=== PATIENT | male | born 1995 | race Caucasian/White ===

== ENCOUNTER 2017-05-11 19:53 | Emergency (ER) | payer OTHER ==
--- NOTE | 2017-05-11 19:59 | ER Report ---
History and Physical Time Seen By MD: 19:59 HPI/ROS CHIEF COMPLAINT: Syncope HISTORY OF PRESENT ILLNESS: This is a 21-year-old male who presents to the emergency department with his parents for a syncopal episode. Patient states that he was sitting at his desk today about 1 hour prior to arrival had a " panic attack" and then passed out. Patient states that when he passed out he hit the corner of his desk and then fell to the ground where his roommates ended up catching him. Patient states he did "come to" quickly after the event. Patient does have a small abrasion above the left eye, a very mild headache, denies C-spine tenderness. Patient's parents were concerned that he had a seizure as as his roommate described to them on the phone he was shaking. After talking to patient it sounds like maybe some myoclonic jerking. Patient is alert and oriented 4. Denies C-spine tenderness. When I asked patient about what precipitates these panic attacks he did say that marijuana has precipitated these in the recent months. He did state that he did not smoke marijuana today but did about 3 days ago. After further probing he states that he did do some cocaine yesterday. Patient denies coughs, colds, aches, fevers, chills, nausea or vomiting. REVIEW OF SYSTEMS: Constitutional: No fever, no chills. Eyes: No discharge. ENT: No sore throat. Cardiovascular: No chest pain, no palpitations. Respiratory: No cough, no shortness of breath. Gastrointestinal: No abdominal pain, no vomiting. Genitourinary: No hematuria. Musculoskeletal: No back pain. Skin: As above. Neurological: As above. Allergies: Coded Allergies: No Known Drug Allergies (Unverified , 05/11/17) Home Meds Reported Medications Amphet Asp/Amphet/D-Amphet (ADDERALL 15 MG TABLET) 15 Mg Tablet, 15 MG PO 05/11/17 Past Medical/Surgical History Patient has a past medical and surgical history of ADD, illicit drug use, no surgery. Reviewed Nurses Notes: Yes Constitutional Vital Sign - Last 24 Hours 05/11/17 05/11/17 05/11/17 05/11/17 20:00 20:05 20:08 20:13 Temp 98.4 Pulse 100 90 Resp 20 13 39 B/P (MAP) 144/96 (112) 144/96 Pulse Ox 100 100 97 O2 Delivery Room Air 05/11/17 05/11/17 20:43 21:13 Pulse 89 83 Resp 12 11 Physical Exam General Appearance: The patient is alert, has no immediate need for airway protection and no signs of toxicity, appears anxious. Eyes: Pupils equal and round no pallor or injection. EOMs intact. ENT, Mouth: Mucous membranes are moist. Respiratory: There are no retractions, lungs are clear to auscultation. Cardiovascular: Regular rate and rhythm, very faint systolic murmur, no clicks or rubs. Gastrointestinal: Abdomen is soft and non tender, no masses, bowel sounds normal. Neurological: Alert and oriented 4. Moving all cavities. Following all commands. No focal neuro deficits. Cranial nerves II through XII intact and equal. Skin: Warm and dry, no rashes. Small abrasion to the left lateral upper eyelid. Musculoskeletal: Neck is supple non tender. Extremities are nontender, nonswollen and have full range of motion. [ ] DIFFERENTIAL DIAGNOSIS: After history and physical exam differential diagnosis was considered for syncope including but not limited to vasovagal syncope, arrhythmia, dehydration, blood loss, seizure and drugs. Medical Decision Making Data Points Result Diagram: 05/11/17205405/11/172054 Laboratory Hematology Test 05/11/17 20:33 05/11/17 20:55 Urine Color Straw Urine Clarity Clear Urine pH 7.0 pH (4.8-9.5) Urine Specific [place] 1.010 Urine Protein Negative mg/dL (NEGATIVE) Urine Glucose (UA) Negative mg/dL (NEGATIVE) Urine Ketones Negative mg/dL (NEGATIVE) Urine Blood Negative (NEGATIVE) Urine Nitrite Negative (NEGATIVE) Urine Bilirubin Negative (NEGATIVE) Urine Urobilinogen Negative mg/dL (0.2-1.9) Urine Leukocyte Esterase Negative (NEGATIVE) Urine RBC 2 /HPF (0-2/HPF) Urine WBC 3 /HPF (0-5/HPF) Urine Squamous Epithelial Cells None /LPF (</=FEW) Urine Bacteria Negative /HPF (NONE-FEW) Urine Mucus None /HPF (NONE-FEW) Urine Opiates Screen Negative Urine Barbiturates Screen Negative Ur Tricyclic Antidepressants Screen Negative Urine Phencyclidine Screen Negative Urine Amphetamines Screen Positive Urine Benzodiazepines Screen Negative Urine Cocaine Screen Positive Urine Cannabinoids Screen Positive Red Blood Count 5.30 M/uL (4.00-5.60) Mean Corpuscular Volume 93.8 fL (80.0-96.0) Mean Corpuscular Hemoglobin 32.5 pg (26.0-33.0) Mean Corpuscular Hemoglobin Concent 34.6 g/dL (32.0-36.0) Red Cell Distribution Width 14.3 % (11.5-14.5) Mean Platelet Volume 7.2 fL (7.2-11.1) Neutrophils (%) (Auto) 87.8 % (39.4-72.5) Lymphocytes (%) (Auto) 4.4 % (17.6-49.6) Monocytes (%) (Auto) 5.9 % (4.1-12.4) Eosinophils (%) (Auto) 0.8 % (0.4-6.7) Basophils (%) (Auto) 1.1 % (0.3-1.4) Nucleated RBC Relative Count (auto) 0.0 /100WBC Neutrophils # (Auto) 11.9 K/uL (2.0-7.4) Lymphocytes # (Auto) 0.6 K/uL (1.3-3.6) Monocytes # (Auto) 0.8 K/uL (0.3-1.0) Eosinophils # (Auto) 0.1 K/uL (0.0-0.5) Basophils # (Auto) 0.2 K/uL (0.0-0.1) Nucleated RBC Absolute Count (auto) 0.00 K/uL Peripheral Blood Smear Yes Y/N Sodium Level 133 mmol/L (137-145) Potassium Level 3.6 mmol/L (3.5-5.0) Chloride Level 100 mmol/L (98-107) Carbon Dioxide Level 22 mmol/L (22-30) Blood Urea Nitrogen 13 mg/dl (9-21) Creatinine 1.00 mg/dl (0.66-1.25) Glomerular Filtration Rate Calc > 60.0 Random Glucose 93 mg/dl (75-110) Calcium Level 8.6 mg/dl (8.4-10.2) Total Bilirubin 0.9 mg/dl (0.2-1.3) Aspartate Amino Transf (AST/SGOT) 45 U/L (0-35) Alanine Aminotransferase (ALT/SGPT) 84 U/L (0-56) Alkaline Phosphatase 73 U/L (0-126) Total Protein 7.1 gm/dl (6.3-8.2) Albumin 3.9 g/dl (3.5-5.0) Chemistry Test 05/11/17 20:33 05/11/17 20:55 Urine Color Straw Urine Clarity Clear Urine pH 7.0 pH (4.8-9.5) Urine Specific [place] 1.010 Urine Protein Negative mg/dL (NEGATIVE) Urine Glucose (UA) Negative mg/dL (NEGATIVE) Urine Ketones Negative mg/dL (NEGATIVE) Urine Blood Negative (NEGATIVE) Urine Nitrite Negative (NEGATIVE) Urine Bilirubin Negative (NEGATIVE) Urine Urobilinogen Negative mg/dL (0.2-1.9) Urine Leukocyte Esterase Negative (NEGATIVE) Urine RBC 2 /HPF (0-2/HPF) Urine WBC 3 /HPF (0-5/HPF) Urine Squamous Epithelial Cells None /LPF (</=FEW) Urine Bacteria Negative /HPF (NONE-FEW) Urine Mucus None /HPF (NONE-FEW) Urine Opiates Screen Negative Urine Barbiturates Screen Negative Ur Tricyclic Antidepressants Screen Negative Urine Phencyclidine Screen Negative Urine Amphetamines Screen Positive Urine Benzodiazepines Screen Negative Urine Cocaine Screen Positive Urine Cannabinoids Screen Positive White Blood Count 13.6 k/uL (4.5-11.0) Red Blood Count 5.30 M/uL (4.00-5.60) Hemoglobin 17.2 g/dL (14.0-18.0) Hematocrit 49.7 % (42.0-52.0) Mean Corpuscular Volume 93.8 fL (80.0-96.0) Mean Corpuscular Hemoglobin 32.5 pg (26.0-33.0) Mean Corpuscular Hemoglobin Concent 34.6 g/dL (32.0-36.0) Red Cell Distribution Width 14.3 % (11.5-14.5) Platelet Count 212 K/uL (150-450) Mean Platelet Volume 7.2 fL (7.2-11.1) Neutrophils (%) (Auto) 87.8 % (39.4-72.5) Lymphocytes (%) (Auto) 4.4 % (17.6-49.6) Monocytes (%) (Auto) 5.9 % (4.1-12.4) Eosinophils (%) (Auto) 0.8 % (0.4-6.7) Basophils (%) (Auto) 1.1 % (0.3-1.4) Nucleated RBC Relative Count (auto) 0.0 /100WBC Neutrophils # (Auto) 11.9 K/uL (2.0-7.4) Lymphocytes # (Auto) 0.6 K/uL (1.3-3.6) Monocytes # (Auto) 0.8 K/uL (0.3-1.0) Eosinophils # (Auto) 0.1 K/uL (0.0-0.5) Basophils # (Auto) 0.2 K/uL (0.0-0.1) Nucleated RBC Absolute Count (auto) 0.00 K/uL Peripheral Blood Smear Yes Y/N Glomerular Filtration Rate Calc > 60.0 Calcium Level 8.6 mg/dl (8.4-10.2) Total Bilirubin 0.9 mg/dl (0.2-1.3) Aspartate Amino Transf (AST/SGOT) 45 U/L (0-35) Alanine Aminotransferase (ALT/SGPT) 84 U/L (0-56) Alkaline Phosphatase 73 U/L (0-126) Total Protein 7.1 gm/dl (6.3-8.2) Albumin 3.9 g/dl (3.5-5.0) Toxicology Test 05/11/17 20:33 Urine Opiates Screen Negative Urine Barbiturates Screen Negative Ur Tricyclic Antidepressants Screen Negative Urine Phencyclidine Screen Negative Urine Amphetamines Screen Positive Urine Benzodiazepines Screen Negative Urine Cocaine Screen Positive Urine Cannabinoids Screen Positive Urinalysis Test 05/11/17 20:33 Urine Color Straw Urine Clarity Clear Urine pH 7.0 pH (4.8-9.5) Urine Specific [place] 1.010 Urine Protein Negative mg/dL (NEGATIVE) Urine Glucose (UA) Negative mg/dL (NEGATIVE) Urine Ketones Negative mg/dL (NEGATIVE) Urine Blood Negative (NEGATIVE) Urine Nitrite Negative (NEGATIVE) Urine Bilirubin Negative (NEGATIVE) Urine Urobilinogen Negative mg/dL (0.2-1.9) Urine Leukocyte Esterase Negative (NEGATIVE) Urine RBC 2 /HPF (0-2/HPF) Urine WBC 3 /HPF (0-5/HPF) Urine Squamous Epithelial Cells None /LPF (</=FEW) Urine Bacteria Negative /HPF (NONE-FEW) Urine Mucus None /HPF (NONE-FEW) EKG/Imaging EKG Interpretation 12 lead EKG: EKG time 2027. Rhythm: Sinus rhythm, ventricular rate 84 bpm. Viola: Right QRS: normal ST segments: No ST depression or elevation. No previous EKG for comparison. ED Course/Re-evaluation Clinical Indication for ER IV: Hydration, IV Access ED Course The patient was admitted to room. A history physical were obtained. Differential diagnoses were considered. An IV was started. A 1 L normal saline bolus was given. Patient's tetanus was updated A CBC, CMP, UA and UDS were obtained. CBC and CMP unremarkable. EKG normal sinus rhythm. UA unremarkable. Urine drug screen showing marijuana, cocaine and amphetamines. Amphetamines from the patient's Adderall. Patient did admit to me that he was smoking marijuana and he tried some cocaine yesterday. I did review these results with the patient and his family. I did the patient this was likely a syncopal episode related to his anxiety. I also talked to the patient about his polysubstance abuse and that these anxiety episodes would likely continue unless he stops the marijuana and cocaine use. I did tell the patient that he needs to follow-up in one to two days with [facility] and he needs to talk to a therapist or a mental health professional to help with his anxiety and use of illicit substances. The patient had no other questions or concerns at this time neither did the parents. The patient was discharged home. Patient states he is feeling better at the time of discharge. Decision to Disposition Date: May 11, 2017 Decision to Disposition Time: 22:00 Depart Departure Latest Vital Signs Vital Signs Date Time Temp Pulse Resp B/P (MAP) Pulse Ox O2 Delivery O2 Flow Rate FiO2 05/11/17 21:13 83 11 05/11/17 20:13 97 05/11/17 20:05 98.4 144/96 Room Air Impression: Primary Impression: Syncope Additional Impressions: Polysubstance abuse Anxiety Condition: Improved Disposition: HOME OR SELF-CARE Referrals: [facility] Patient Instructions: Anxiety (ED), Polysubstance Abuse (ED), Syncope (ED) Additional Instructions: Drink plenty of fluids. Get plenty of rest. You need to stop using Marijuana and Cocaine. You need to use your Adderall as directed only. You need to follow up with [facility] either or Tuesday. Follow up with your primary care provider for future needs. May return to the ED for any other needs or worsening symptoms. MD Consult Note: Dr. George Problem Qualifiers Primary Impression: Syncope Syncope type: unspecified Qualified Codes: R55 - Syncope and collapse AMADOU JOHNSON [employer] May 11, 2017 19:59
[2017-05-11 20:05] VITALS: BP 144/96
[2017-05-11] MEDS ORDERED: AMPH15TA3 PO (20:05)
[2017-05-11] MEDS ORDERED: NS(*) 0.9% 1000 ML BAG 1,000 ML IV ONE (20:21)
--- NOTE | 2017-05-11 20:52 | EKG ---
FACILITY: [facility] [place] PATIENT NAME: CHRIS RAMOS : [id number] MR: [id number] V: [id number] EXAM DATE: ORDERING PHYSICIAN: AMADOU JOHNSON TECHNOLOGIST: REY Suggs Reason : NEAR SYNCOPE Blood Pressure : / mmHG Vent. Rate : 084 BPM Atrial Rate : 084 BPM P-R Int : 136 ms QRS Dur : 086 ms QT Int : 356 ms P-R-T Axes : 083 091 052 degrees QTc Int : 420 ms Normal sinus rhythm Possible Left atrial enlargement R wave progression consistent with old ant/sep NC vs lead placement No previous ECGs available Confirmed by KINGSLEY BECKER ([id number]) on 05/11/2017 11:07:53 PM Referred By: Confirmed By:KINGSLEY BECKER
[2017-05-11 21:06] LABS: PLATELET COUNT, AUTOMATED 212 K/uL (150-450)
[2017-05-11] MEDS ORDERED: DIPHTH/TETANUS/ACEL. PERTUSSIS IM ONLY ONE (21:35)
== END 2017-05-11 22:07 | disposition home or self-care (01) ==
LOC: ER 20:25
DX: R55 Syncope and collapse (principal); F19.10 Other psychoactive substance abuse, uncomplicated; F41.9 Anxiety disorder, unspecified
CPT/HCPCS: 80305; 81001; 84146; 85025; 93005; 99283; J7030; 82040; 82247; 82310; 82374; 82435; 82565; 82947; 84075; 84132; 84155; 84295; 84450; 84460; 84520